=== PATIENT | female | born 1965 | race Caucasian/White ===

== ENCOUNTER → 2023-11-11 10:29 | Outpatient (REF) | payer BC, SELFPAY | LOC: RCS 10:29 | PROVIDERS: ATTENDING PHYSICIAN Internal Medicine Cardiovascular Disease; FAMILY PHYSICIAN Family Medicine | DX: R94.31 Abnormal electrocardiogram [ECG] [EKG] (principal) | CPT/HCPCS: 93306 ==

== ENCOUNTER → 2023-11-24 10:12 | Outpatient (REF) | payer BC, SELFPAY | LOC: RCS 10:12 | PROVIDERS: ATTENDING PHYSICIAN Internal Medicine Cardiovascular Disease; FAMILY PHYSICIAN Family Medicine | DX: R94.31 Abnormal electrocardiogram [ECG] [EKG] (principal) | CPT/HCPCS: 93017; 93350 ==

== ENCOUNTER 2024-01-26 18:04 | Inpatient (IN) | payer BC, SELFPAY ==
[2024-01-26] VITALS (8 sets, daily range): BP systolic 130–150; BP diastolic 80–95; BMI 23.9; BMI 23.0
--- NOTE | 2024-01-26 08:49 | ED.GENMED ---
History of Present Illness
General
Chief Complaint: Abdominal Pain
Source: patient
Time Seen by Provider: 01/26/24 08:37
Travel History
Have you had any contact with someone who has COVID-19?: No
Do you have any symptoms of coronavirus? Fever > 100 degrees, chills, cough, shortness of breath, sore throat, loss of taste or smell, muscle aches, or headache?: No
History of Present Illness
History of Present Illness:
This patient is a very pleasant 58-year-old female presents emergency department with complaints of upper abdominal pain that started about 30 minutes after eating last evening. She describes the pain as constant, but waxes and wanes in intensity
without specific provoking or relieving factors. She notes that she is under tremendous amount of stress recently. Patient has a history of IBS, and states that she suffers with nausea and diarrhea typically after eating, but it goes away usually
within a few hours. This has not gone away. At 4:30 AM today she developed vomiting, without blood or coffee grounds, and eventually called medics due to continued symptoms. She was given Zofran on transport and is no longer nauseous but the pain
continues. She denies associated chest pain, back pain, dyspnea, fever, chills, urinary symptoms, headache, or other complaints.
Past History
Past History
ED Past Medical History: Asthma, GERD and HTN
ED Past Surgical History: Other (Perforated rectum at 7 months old, has stool incont. since.)
Social History
Tobacco: Non-smoker
Alcohol: None
Drug: None
Personal: Single
Living: with family
Employment: Employed
Family History
Family History: Diabetes, Cancer and Other (HTN)
Phy Exam
Physical Exam
Physical Exam:
GENERAL: Alert , appears slightly uncomfortable
EYE: pupils equal and reactive
NECK: Supple, no significant adenopathy.
ENT: o/p clr, mm dry
CARDIAC: Regular rate and rhythm .
LUNGS: Clear breath sounds bilaterally, no acute respiratory distress, no wheezes/rales/rhonchi
ABDOMEN: Soft, mild to moderate upper abdominal tenderness, no r/g, no cvat, slight distention
NEUROLOGICAL: Alert and oriented, no focal neuro deficits
SKIN: Warm and dry, skin intact.
MUSCULOSKELETAL: No edema, well perfused.
PSYCH: Normal and appropriate interaction.
Course
Orders/Labs/Results
Orders:
Orders
01/26/24 08:41
Complete Blood Count/With Diff Urgent
Comprehensive Metabolic Panel Urgent
Lipase Urgent
01/26/24 08:48
Electrocardiogram (*1) Stat
Reason for Study: Abdominal Pain
Cardiac Monitoring- Treatment ONCE
EKG- Treatment ONCE
0.9% Sodium Chloride 1000 ml [Nss] 1,000 ml IV BOLUS
Morphine Sulfate 4 mg IV NOW STA
CR Obstruct Series W/pa Chest Urgent
Comment:
Reason For Exam: distention, pain, n/v
01/26/24 08:49
US Abdomen Complete/Upper Urgent
Comment:
Reason For Exam: upper pain, n/v
01/26/24 11:33
Iohexol [Omnipaque] See Protocol PO NOW STA
01/26/24 11:34
CT Abd/pel W Iv And Oral Contr Urgent
Comment:
Reason For Exam: abd pain, hx surgery
01/26/24 11:47
Urinalysis Reflex To Culture Urgent
Date Specimen was Collected: 01/26/24
Time Specimen was Collected: 11:46
Abnormal Lab Results
01/26/24
08:41
MPV 10.6 H fL
(7.4-10.4)
Absolute Neuts (auto) 8.2 H 10^3/uL
(1.4-6.5)
Absolute Lymphs (auto) 0.9 L 10^3/uL
(1.2-3.4)
Neutrophils % 86.9 H %
(42.2-75.2)
Lymphocytes % 9.0 L %
(20.5-51.1)
Glucose 141 H mg/dl
(70-99)
01/26/24 08:41
01/26/24 08:41
Vital Signs
Initial and Last Documented VS:
Initial Vital Signs
Temp Pulse Resp BP Pulse Ox
97.8 F 74 20 150/87 100
01/26/24 08:26 01/26/24 08:26 01/26/24 08:26 01/26/24 08:26 01/26/24 08:26
Last Documented Vital Signs
Temp Pulse Resp BP Pulse Ox
97.8 F 90 13 141/90 98
01/26/24 08:26 01/26/24 14:30 01/26/24 14:30 01/26/24 14:00 01/26/24 14:30
Update Note
Update Note:
Patient presents to the Emergency Department with ___abdominal pain nausea and vomiting
Number and Complexity of Problems Addressed at the Encounter
� Chronic conditions affecting care:
� Acute Exacerbation and/or Progression of Chronic Illness:
� Differential Diagnosis includes: But not limited to bowel obstruction, acute cholecystitis, cholelithiasis, pancreatitis, etc. etc.
Amount and/or Complexity of Data to be Reviewed and Analyzed
� I performed an independent evaluation of and my interpretation is:
EKG: Read by me, normal sinus rhythm, no acute ischemia, QT noted at 484
CT:High-grade partial small bowel obstruction in the mid abdomen . Just proximal to the transition is a stool-filled loop of small bowel in the midabdomen. Most likely related to previous postsurgical adhesions. No free air. No
fluid collection.
Mild hydronephrosis of the right kidney, etiology unclear. May be due to congenital anomaly or rotation. No distal ureteral calcification.
Xrays:
Laboratory Studies: Generally unremarkable
Other:
� Review of other/old records reveals: Patient had a normal exercise stress and echo with an EF of 60% in 2019
� Clinical information was obtained by an independent historian:
� Prescriptions/Medications Considered but not given:
� Further testing considered but not performed:
Risk of Complications and/or Morbidity or Mortality of Patient Management
� Social determinants of health affecting care:
� Discussion with other providers (PCP, Hospitalists, Consultants, etc):
� Escalation of care including admission/observation vs risk of discharge considered: 4:14 PM 58-year-old female with partial SBO most likely related to adhesions, not actively vomiting, hemodynamically stable. Case discussed
with hospitalist for admission, maintenance rate of IV fluids started, patient stable
ED Attending Note
-
Portions of this chart may have been created with voice recognition software.� Occasional wrong word or��sound alike� substitutions may have occurred due to the inherent limitations of voice recognition software.
Discharge Plan
Departure
Patient Disposition: Admit
Date of Disposition: 01/26/24
Time of Disposition: 16:14
Admit to: Med/Surg
Presentation/result/management discussed w/ accepting MD/DO: Hospitalist
Condition: Fair
Discharge Problem:
SBO (small bowel obstruction)
Prescriptions:
No Action
ergocalciferol (vitamin D2) [Vitamin D] 50,000 UNIT capsule
50,000 unit PO DAILY
albuterol sulfate [ProAir HFA] 8.5 GM HFA aerosol inhaler
2 puff IH DAILYPRN PRN (Reason: sob)
fluoxetine [Prozac] 40 MG capsule
40 mg PO HS
amlodipine 2.5 MG tablet
2.5 mg PO DAILY
fluticasone propion-salmeterol [Advair Diskus] 1 EACH blister with device
1 ea IH BID
loperamide 2 MG capsule
2 mg PO Q4HPRN PRN (Reason: diarrhea)
ondansetron HCl 4 MG tablet
4 mg PO Q8HPRN PRN (Reason: nausea)
naproxen 250 MG tablet
250 mg PO PRN PRN (Reason: pain)
acetaminophen [Tylenol Extra Strength] 500 MG tablet
1,000 mg PO Q4HPRN PRN (Reason: pain)
fluticasone propionate 1 SPRAY spray,suspension
1 spray intranasal DAILY
tcnebsf-gsowspfbbhhba-oaxstwoy [Excedrin Migraine] 1 TABLET tablet
1 tab PO PRN PRN (Reason: migraine)
albuterol sulfate 90 mcg/actuation aerosol powdr breath activated
2 inh inhalation Q6H PRN (Reason: shortness of breath or wheezing) Qty: 1 0RF
benzonatate 200 mg capsule
200 mg PO TID PRN (Reason: Cough) Qty: 21 0RF
Referrals:
Eileen Yusuf DO [Family Provider] -
Interventions
Interventions:
*Risk Screen - Suicide Last Done: 01/26/24 08:29
*General Assessment Last Done: 01/26/24 08:29
*Neglect/Abuse Screening Last Done: 01/26/24 08:29
*ED COVID-19 Vaccine History Last Done: 01/26/24 08:31
EX-Lufiud-Fhdnmhkhgs Assessment Last Done: 01/26/24 08:35
Discharge Date and Time
Print Language: BELGIAN
[2024-01-26 08:58] LABS: % Basophils 0.3 % (0-2); % Eosinophils 0.2 % (0-6); % Immature Granulocytes 0.2 % (0-0.5); % Monocytes 3.4 % (1.7-9.3); % Neutrophils 86.9 % (42.2-75.2); Absolute Lymphocytes 0.9 10^3/uL (1.2-3.4); Absolute Monocytes 0.3 10^3/uL (0.1-0.6); Absolute Neutrophils 8.2 10^3/uL (1.4-6.5); Hematocrit 38.5 % (37.0-47.0); Hemoglobin 13.2 g/dL (12.0-16.0); Mean Corp Hgb Conc. 34.3 g/dL (33.0-37.0); Mean Corpuscular Hgb 29.1 pg (27.0-31.0); Mean Platelet Volume 10.6 fL (7.4-10.4); Nucleated Red Blood Cells % 0 %; Platelet Count 224 10^3/uL (130-400); Red Blood Cell Count 4.53 10^6/uL (4.20-5.40); Red Cell Dist. Width 13.5 % (11.5-14.5); White Blood Cell Count 9.4 10^3/uL (4.8-10.8)
[2024-01-26] MEDS: MORPHINE SULFATE 4 MG IV (08:59)
[2024-01-26] MEDS: NSS 1000 IV ×2 (08:59→19:36)
[2024-01-26 09:02] LABS: ALT (SGPT) 15 U/L (0-35); AST (SGOT) 24 U/L (14-36); Albumin 4.6 g/dl (3.5-5.0); Alkaline Phosphatase 79 U/L (38-126); Blood Urea Nitrogen 10 mg/dl (7-17); Calcium 9.5 mg/dl (8.4-10.2); Carbon Dioxide 27 mmol/L (22-30); Chloride 105 mmol/L (98-107); Estimated Creatinine Clearance 61 ml/min; Glucose 141 mg/dl (70-99); Lipase 98 U/L (23-300); Potassium 3.8 mmol/L (3.5-5.1); Sodium 139 mmol/L (135-145); Total Bilirubin 0.7 mg/dl (0.2-1.3); Total Protein 7.6 g/dl (6.3-8.2); eGFR > 60.00
[2024-01-26] MEDS: OMNIPAQUE 50 ML PO (11:54)
[2024-01-26 12:04] LABS: Urine Albumin Negative (Neg - Trace); Urine Bilirubin Negative (Negative); Urine Character Clear (Clear); Urine Color Yellow; Urine Glucose Negative (Negative); Urine Ketone Negative (Negative); Urine Leukocyte Negative (Negative); Urine Nitrite Negative (Negative); Urine Occult Blood Negative (Negative); Urine Specific Gravity 1.015 (<1.030); Urine Urobilinogen Negative (Neg - 1+); Urine pH 6.5 (5.0-9.0)
--- NOTE | 2024-01-26 16:28 | HPS.HSE ---
Addendum entered and electronically signed by JEFFRY Richardson 01/26/24 17:13:
Surgery will see in a.m. Dr. Rivas aware
-Flatplate abdomen in a.m. reassess SBO
-If vomiting persistent may place NG tube per surgery
Original Note:
Family Physician
-
Family Physician: Eileen Yusuf
Chief Complaint
-
Abdominal pain, nausea, diarrhea
History of Present Illness
58-year-old female complaining of upper abdominal pain 30 minutes after eating last night. She reports the pain has wax and wane but has not gone away. She said she has history of IBS and frequently has nausea and diarrhea after eating but it
typically goes away within a few hours she also states she has been under a lot of stress recently. In the ER she was noted to have a partial small bowel obstruction likely secondary to prior adhesions.
She has history of chronic stool incontinence due to a absent anus at 7 months although surgically repaired was coming out prior vaginal area before repair. Her other past medical history includes
HTN, asthma, chronic bronchitis, GERD, IBS, gallbladder polyps, seasonal allergies, anemia, anxiety, depression, cataracts, headaches/migraine, cyst on kidney.
Medical History
Past Medical History
Past Medical History: Reports Other
Additional Past Medical History:
HTN
asthma
chronic bronchitis
Chronic stool incontinence
GERD
IBS
anemia
gallbladder polyps
seasonal allergies
anxiety
depression
headaches/migraine
cataracts
cyst on kidney
Past Surgical History: Reports Other
Additional Past Surgical History:
[place] teeth extraction
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
Appendectomy
Left carpal tunnel repair
Right CTR repair 1990s
Social History
Tobacco: Non-smoker
Alcohol: Occasional
Drug: None
Personal: Single
Living: With Family (Lives with her parents)
Employment: Employed (Flat [employer] at [employer])
Family History
Family History: Other (Mother history dementia, breast CA, HTN, CHF, DM 2, father history CHF, DM 2, 1 brother unknown history)
Allergies / Home Medications
Allergies reflects when Allergies were last updated in [facility]
Home Medications with original date entered in [facility]
Allergy/Medication List:
Allergies
Allergy/AdvReac Type Severity Reaction Status Date / Time
ibuprofen Allergy stomach Verified 01/26/24 08:26
pain
aspirin AdvReac diarrhea Verified 01/26/24 08:26
and
stomach
pain
enviromental Allergy sneezing, Uncoded 01/26/24 08:26
watery eyes
Home Medications
albuterol sulfate 90 mcg/actuation aerosol inhaler (ProAir HFA) 2 puff IH R Q4HPRN PRN sob 11/23/10
amlodipine 2.5 mg tablet 2.5 mg PO DAILY 11/20/21
acetaminophen 500 mg tablet (Tylenol Extra Strength) 1,000 mg PO DAILY 11/23/21
fluoxetine 20 mg capsule (Prozac) 20 mg PO HS 01/26/24
Review of Systems
-
History Source: Patient
A 12 point ROS was completed and negative except as noted: Yes
Constitutional: Denies Fever or Chills
EENT: Denies Sore Throat or Runny Nose
Respiratory: Denies Cough or Trouble Breathing
Cardiac: Denies Chest Pain or Syncope
Abdomen/GI: Reports Abdominal Pain (Midepigastric), Nausea, Vomiting and Diarrhea
: Denies Dysuria, Frequency, Flank Pain, Incontinence, Difficulty Voiding or Urgency
Musculoskeletal: Denies Joint Pain or Edema
Skin: Denies Itching or Rash
Neurological: Denies Dizzy, Headache or Weakness
Endocrine: Reports No Symptoms
Hematologic/Lymphatic: Reports No Symptoms
Psych: Reports Calm
Physical Exam
Vital Signs
Vital Signs
Temp Pulse Resp BP Pulse Ox
97.8 F 90 13 141/90 98
01/26/24 08:26 01/26/24 14:30 01/26/24 14:30 01/26/24 14:00 01/26/24 14:30
Physical Exam
General: Conversant and Pain; No Fever or Chills
HEENT: NormoCephalic, Anicteric, Moist mucous membranes, PERRLA, [place] Conjunctivae and No Ptosis
Respiratory: Clear; No Wheezes, Rales or Rhonchi
Cardiac: S1/S2 and Regular Rhythm; No Murmur, Rub, Gallop or Peripheral Edema
Breast: Deferred by me
GI: Soft, Non Distended, Normal Bowel Sounds, Tender (Midepigastric) and No Hepatosplenomegaly
Rectal: Deferred by Provider
Genito-urinary: Deferred by me
Musculoskeletal: No Clubbing, No Cyanosis and No Edema
Skin: Warm and Dry; No Rash
Neuro: AO x 3, No Motor Deficits, Nonfocal/grossly intact, Cranial Nerves Intact and No Sensory Deficits; No Slurred Speech, Facial Droop or Tremors
Psych: Calm
Laboratory Results
-
01/26/24 08:41
01/26/24 08:41
Laboratory Results
Total Bilirubin 0.7 mg/dl (0.2-1.3) 01/26/24 08:41
AST 24 U/L (14-36) 01/26/24 08:41
ALT 15 U/L (0-35) 01/26/24 08:41
Alkaline Phosphatase 79 U/L (38-126) 01/26/24 08:41
Lipase 98 U/L (23-300) 01/26/24 08:41
Data Reviewed
-
CT Scan: Report Reviewed by me
Lab Data: Labs Reviewed by me
Impression/Plan
-
Impression/plan:
Admit to MedSurg
#Partial small bowel obstruction likely secondary to adhesions
#History of chronic stool incontinence/congenital anus repair at age 6 months
141/90, HR 90, 97.8
-Consult Surgery
-N.p.o.
-IV NSS
-IV Protonix 40 mg now and daily
-IV Phenergan as needed nausea
-IV morphine for pain
-Follow CBC, BMP
CT abdomen pelvis with IV and oral contrast:
1. High-grade partial small bowel structure in the mid abdomen. Just proximal to the transition is a stool filled loop of small bowel in the mid abdomen most likely to previous postsurgical adhesions. No free air or fluid
collection
2. Mild hydronephrosis of the right kidney unclear etiology may be congenital.
Abdominal ultrasound: 2 small gallbladder polyps. Gallbladder otherwise unremarkable
#Prolonged QTc
-Avoid prolonged QTc agents
-IV Phenergan as needed nausea
EKG: Sinus rhythm 80 bpm with short OH, prolonged QTc 484 MS
-Follow EKG QTc
#HTN�benign
141/90
-Hold p.o. amlodipine 2.5 mg daily
#Asthma-no acute exacerbation
# Chronic bronchitis
-Continue albuterol inhaler as needed
#GERD
#IBS hx
-Patient follows with Dr. Liz GI as outpatient
#Anemia hx
Hgb 13.2
#Anxiety/Depression
-Hold Prozac 20 mg at bedtime
#Headaches/migraine
-No current meds
Other PMH:
Gallbladder polyps
Seasonal allergies
cataracts
Cyst on Kidney right
DVT prophylaxis
Subcu Lovenox
Full code
[2024-01-26] MEDS: NSS 500 IV (16:56)
--- NOTE | 2024-01-26 17:11 | W.PN.UPDATE ---
Update Note
Progress Note Update
HPI: 58-year-old female PMH HTN, asthma, chronic bronchitis, GERD, IBS, gallbladder polyps, seasonal allergies, anemia, anxiety/depression, cataracts, headaches/migraine, cyst on kidney; p/w abdominal pain after eating last night. She also c/o
nausea. 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
In the ER, her CT AP noted partial small bowel obstruction likely secondary to prior adhesions.
A/P:
# Abd pain due to partial small bowel obstruction likely secondary to adhesions
Consult GS
Cont NPO with IVF
IV Protonix 40 mg daily
IV Phenergan as needed nausea
IV morphine for pain
# Prolonged QTc
Avoid prolonged QTc agents
IV Phenergan as needed nausea
Follow QTc
# HTN
Hold p.o. amlodipine 2.5 mg daily
can use IV hydralazine as needed for SBP > 160
# Asthma-no acute exacerbation
# Chronic bronchitis
Continue albuterol inhaler as needed
# GERD
# IBS hx
Patient follows with GI Dr. Liz as outpatient
# Anxiety/Depression
Hold Prozac 20 mg at bedtime
Other PMH:
# Gallbladder polyps
# cataracts
# Cyst on right kidney
DVT prophylaxis: Subcu Lovenox
Full code
[2024-01-26] MEDS: MORPHINE SULFATE 2 MG IV (17:48)
[2024-01-26] MEDS: PROTONIX IV 40 MG IV (17:49)
[2024-01-26] MEDS: NSS (PRESERVATIVE FREE) 10 ML IV (17:49)
[2024-01-26] MEDS: NSS IV (22:03)
[2024-01-27] MEDS: NSS IV ×2 (01:29→06:01)
[2024-01-27] MEDS: NSS 1000 IV (04:06)
[2024-01-27 07:30] VITALS: BP 150/74
[2024-01-27 07:38] LABS: % Basophils 0.6 % (0-2); % Immature Granulocytes 0.2 % (0-0.5); % Lymphocytes 25.9 % (20.5-51.1); % Monocytes 7.4 % (1.7-9.3); % Neutrophils 63.9 % (42.2-75.2); Absolute Eosinophils 0.1 10^3/uL (0-0.7); Absolute Lymphocytes 1.3 10^3/uL (1.2-3.4); Absolute Monocytes 0.4 10^3/uL (0.1-0.6); Absolute Neutrophils 3.2 10^3/uL (1.4-6.5); Hematocrit 34.9 % (37.0-47.0); Hemoglobin 11.5 g/dL (12.0-16.0); Mean Corpuscular Hgb 28.8 pg (27.0-31.0); Mean Corpuscular Volume 87.3 fL (81.0-99.0); Mean Platelet Volume 10.8 fL (7.4-10.4); Nucleated Red Blood Cells % 0 %; Platelet Count 159 10^3/uL (130-400); Red Cell Dist. Width 13.7 % (11.5-14.5)
[2024-01-27] MEDS: NSS (PRESERVATIVE FREE) 10 ML IV (07:42)
[2024-01-27] MEDS: PROTONIX IV 40 MG IV (07:42)
[2024-01-27 08:06] LABS: ALT (SGPT) 10 U/L (0-35); AST (SGOT) 21 U/L (14-36); Albumin 3.2 g/dl (3.5-5.0); Alkaline Phosphatase 64 U/L (38-126); Blood Urea Nitrogen 7 mg/dl (7-17); Calcium 8.5 mg/dl (8.4-10.2); Carbon Dioxide 25 mmol/L (22-30); Chloride 109 mmol/L (98-107); Estimated Creatinine Clearance 68 ml/min; Glucose 88 mg/dl (70-99); Potassium 4.1 mmol/L (3.5-5.1); Sodium 136 mmol/L (135-145); Total Bilirubin 1.3 mg/dl (0.2-1.3); Total Protein 5.6 g/dl (6.3-8.2); eGFR > 60.00
--- NOTE | 2024-01-27 08:47 | PTOTSP ---
orders received, chart reviewed. per RN, pt is up in room ad davi, no difficulties with self care or ambulation. no acute OT needs identified, will sign off.
[2024-01-27 08:51] LABS: Hepatitis C Antibody Negative (Negative)
--- NOTE | 2024-01-27 09:22 | W.PN.HOSP.TC ---
Today's Communication/Plan
-
see A/P
Assessment / Plan
Assessment / Plan
HPI: 58-year-old female PMH HTN, asthma, chronic bronchitis, GERD, IBS, gallbladder polyps, seasonal allergies, anemia, anxiety/depression, cataracts, headaches/migraine, cyst on kidney; p/w abdominal pain after eating last night. She also c/o
nausea. 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
In the ER, her CT AP noted partial small bowel obstruction likely secondary to prior adhesions.
A/P:
# Abd pain due to partial small bowel obstruction likely secondary to adhesions
GS on board, started clears
Observe off IVF
Cont IV Protonix 40 mg daily
With improved QTc, change IV Phenergan to IV Zofran
IV morphine for pain
Follow Abd XR follow through
# Mildly Prolonged QTc POA, QTc has improved
With improved QTc, change IV Phenergan to IV Zofran
# HTN
Hold p.o. amlodipine 2.5 mg daily
can use IV hydralazine as needed for SBP > 160
# Asthma-no acute exacerbation
# Chronic bronchitis
Continue albuterol inhaler as needed
# GERD
# IBS hx
Patient follows with GI Dr. Liz as outpatient
# Anxiety/Depression
Hold Prozac 20 mg at bedtime
Other PMH:
# Gallbladder polyps
# cataracts
# Cyst on right kidney
DVT prophylaxis: Subcu Lovenox
Full code
Anticipated Discharge: 24 - 48 hours
Subjective/Interval History
-
Date of Service: January 27, 2024
Objective Data
-
Labs:
Laboratory Results
01/27/24
07:22
WBC 5.0
Hgb 11.5 L
Hct 34.9 L
Plt Count 159 D
Sodium 136
Potassium 4.1
Chloride 109 H
Carbon Dioxide 25
BUN 7
Creatinine 0.6
Glucose 88
Calcium 8.5
Total Bilirubin 1.3
AST 21
ALT 10
Alkaline Phosphatase 64
Vital Signs:
Vital Signs
Temp Pulse Resp BP Pulse Ox
36.6 C 71 18 150/74 96
01/27/24 07:30 01/27/24 07:30 01/27/24 07:30 01/27/24 07:30 01/27/24 07:30
Review of Systems
-
Abdomen/GI: Reports Other ('abdominal pressure' per pt)
Physical Exam
-
General: Well Developed, Well Nourished, No Apparent Distress, Comfortable and Conversant; Negative Respiratory Distress
HEENT: Normocephalic, Atraumatic, Nose Appears Normal and Ears Appear Normal; Negative Oxygen
Respiratory: Clear to Auscultation and Non Labored Respirations; Negative Accessory Resp Muscle Use
Cardiac: Regular Rhythm and S1/S2
GI: Soft, Nondistended and Normal Bowel Sounds
Skin: Warm and Dry
Neuro: Awake, Alert, Oriented and AO x 3
Psych: Calm and Intact Judgement/Insight
Data Reviewed
-
CT Scan: Report Reviewed by me
Labs: Labs Reviewed by me
--- NOTE | 2024-01-27 10:25 | CON.GS ---
Addendum entered and electronically signed by Calin Miranda MD 01/27/24 14:53:
I saw and examined the patient independently.
The Solar System Installer's note was reviewed and I agree with the note, assessment and plan except where noted below.
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
CT imaging likely secondary to adhesions, her first ever episode. Repeat imaging today however demonstrates contrast well into the colon, indicating this obstruction might be resolving. She is still slightly distended but is passing flatus.
Okay for clears and advance diet as tolerated.
No acute general surgery intervention warranted.
Will continue to follow
Original Note:
Medical History
-
Chief Complaint: vomiting
History of Present Illness:
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 She
denies active pain or nausea currently. She has passed some flatus overnight but no BM as of yet. Abdominal distention present but mild.
Past Medical History
Past Medical History: Asthma, GERD, HTN and Other (IBS, gallbladder polyps, hiatal hernia)
Past Surgical History: Orthopedic (BL carpal tunnel repairs) and Other (Surgery to correct anal atresia as a 6month old with concurrent appendectomy)
Social History
Tobacco: Non-Smoker
Alcohol: Occasional
Living: With Family
Family History
Family History: Cancer (breast-mother)
Allergies / Home Medications
Allergy/AdvReac Type Severity Reaction Status Date / Time
ibuprofen Allergy stomach Verified 01/26/24 08:26
pain
aspirin AdvReac diarrhea Verified 01/26/24 08:26
and
stomach
pain
enviromental Allergy sneezing, Uncoded 01/26/24 08:26
watery eyes
�Medication �Instructions �Recorded �Confirmed �Type
albuterol sulfate 90 mcg/actuation 2 puff IH R Q4HPRN PRN shortness 11/23/10 01/26/24 History
aerosol inhaler (ProAir HFA) of breath
amlodipine 2.5 mg tablet 2.5 mg PO DAILY Blood Pressure 11/20/21 01/26/24 History
acetaminophen 500 mg tablet 1,000 mg PO DAILY Pain 11/23/21 01/26/24 History
(Tylenol Extra Strength)
fluoxetine 20 mg capsule (Prozac) 20 mg PO HS depression/anxiety 01/26/24 01/26/24 History
Review of Systems
-
A 10 point review of systems was completed, and was negative except as per HPI.
Physical Exam
Vital Signs
Temp Pulse Resp BP Pulse Ox
97.9 F 71 18 150/74 96
01/27/24 07:30 01/27/24 07:30 01/27/24 07:30 01/27/24 07:30 01/27/24 08:00
01/26/24 01/27/24 01/28/24
06:59 06:59 06:59
Actual Weight 51.71 kg
Body Mass Index (BMI) 23.0
Lab Results
01/27/24 07:22
01/27/24 07:22
WBC 5.0 10^3/uL (4.8-10.8) 01/27/24 07:22
Hgb 11.5 g/dL (12.0-16.0) L 01/27/24 07:22
Hct 34.9 % (37.0-47.0) L 01/27/24 07:22
Plt Count 159 10^3/uL (130-400) D 01/27/24 07:22
Abs Immat Gran (auto) 0.0 10^3/uL (0-0.05) 05/03/24 07:22
Neutrophils % 63.9 % (42.2-75.2) 01/27/24 07:22
Physical Exam
General: Well Developed, Well Nourished and No Apparent Distress
HEENT: Moist Mucous Membranes
Respiratory: Non Labored Respirations
GI: Soft, Non Tender and Distended (mild)
Skin: Warm and Dry
Neuro: Awake, Alert and AO x 3
Psych: Calm
Data Reviewed
-
Radiology: Image Personally Visualized and interpreted, Report Reviewed by me, Discussed with Physician and Discussed with Patient
CT Scan: Image Personally Visualized and interpreted, Report Reviewed by me, Discussed with Physician and Discussed with Patient
Labs: Labs Reviewed by me and Discussed with Physician
Assessment / Plan
-
58 yo female with a h/o anal atresia with corrective surgery with concurrent appendectomy as a 6 month old child who presents with n/v/abdominal pain starting yesterday evening. Symptoms resolving with passage of flatus this am. CT imaging reviewed
with concern for pSBO likley secondary to adhesions. She notes no prior obstructions in the past. Follow up imaging this morning with contrast within the colon, await final read. AFVSS
--No plan for emergent surgery at this time, follow with supportive measures
--Start clear liquids and follow for tolerance
--Medical management as per primary team
--- NOTE | 2024-01-27 10:44 | CM ---
I met with Yasmin Gallardo this AM to complete assessment. 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 Per Yasmin her parents 'do their own thing'. She does feel stressed by her parents, moreso her mother who
has mild dementia, however Yasmin Gallardo does not care to live elsewhere. She states she has always lived with them and not planning to leave. Yasmin's brother will likely pick her up at discharge. No needs identified at this time.
[2024-01-27 15:26] VITALS: BP 139/86
[2024-01-27 23:23] VITALS: BP 138/86
[2024-01-28 05:50] LABS: % Basophils 0.9 % (0-2); % Eosinophils 3.9 % (0-6); % Immature Granulocytes 0.2 % (0-0.5); % Lymphocytes 31.4 % (20.5-51.1); % Neutrophils 55.6 % (42.2-75.2); Absolute Eosinophils 0.2 10^3/uL (0-0.7); Absolute Lymphocytes 1.4 10^3/uL (1.2-3.4); Absolute Monocytes 0.4 10^3/uL (0.1-0.6); Absolute Neutrophils 2.4 10^3/uL (1.4-6.5); Hematocrit 36.3 % (37.0-47.0); Hemoglobin 12.1 g/dL (12.0-16.0); Mean Corp Hgb Conc. 33.3 g/dL (33.0-37.0); Mean Corpuscular Volume 87.1 fL (81.0-99.0); Mean Platelet Volume 10.6 fL (7.4-10.4); Nucleated Red Blood Cells % 0 %; Platelet Count 156 10^3/uL (130-400); Red Blood Cell Count 4.17 10^6/uL (4.20-5.40); Red Cell Dist. Width 13.1 % (11.5-14.5); White Blood Cell Count 4.4 10^3/uL (4.8-10.8)
[2024-01-28 06:09] LABS: ALT (SGPT) 10 U/L (0-35); AST (SGOT) 27 U/L (14-36); Albumin 3.6 g/dl (3.5-5.0); Alkaline Phosphatase 66 U/L (38-126); Blood Urea Nitrogen 7 mg/dl (7-17); Calcium 9.1 mg/dl (8.4-10.2); Carbon Dioxide 29 mmol/L (22-30); Chloride 105 mmol/L (98-107); Estimated Creatinine Clearance 68 ml/min; Glucose 94 mg/dl (70-99); Potassium 3.8 mmol/L (3.5-5.1); Sodium 138 mmol/L (135-145); Total Bilirubin 1.5 mg/dl (0.2-1.3); Total Protein 6.3 g/dl (6.3-8.2); eGFR > 60.00
[2024-01-28 07:35] VITALS: BP 144/89
[2024-01-28] MEDS: PROTONIX IV 40 MG IV (07:46)
[2024-01-28] MEDS: NSS (PRESERVATIVE FREE) 10 ML IV (07:46)
--- NOTE | 2024-01-28 09:48 | W.PN.HOSP.TC ---
Today's Communication/Plan
-
see A/P
Assessment / Plan
Assessment / Plan
HPI: 58-year-old female PMH HTN, asthma, chronic bronchitis, GERD, IBS, gallbladder polyps, seasonal allergies, anemia, anxiety/depression, cataracts, headaches/migraine, cyst on kidney; p/w abdominal pain after eating last night. She also c/o
nausea. 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
In the ER, her CT AP noted partial small bowel obstruction likely secondary to prior adhesions.
A/P:
# Abd pain due to partial small bowel obstruction likely secondary to adhesions
GS on board, started clears and would be advanced to full liquid today, ADAT per surgery
Off IVF
Cont IV Protonix 40 mg daily
With improved QTc, changed IV Phenergan to IV Zofran
IV morphine for pain
Abd XR follow through showed contrast in the colon
# Mildly Prolonged QTc POA, QTc has improved
With improved QTc, changed IV Phenergan to IV Zofran
# HTN
Hold p.o. amlodipine 2.5 mg daily
can use IV hydralazine as needed for SBP > 160
# Asthma-no acute exacerbation
# Chronic bronchitis
Continue albuterol inhaler as needed
# GERD
# IBS hx
Patient follows with GI Dr. Liz as outpatient
# Anxiety/Depression
Hold Prozac 20 mg at bedtime
Other PMH:
# Gallbladder polyps
# cataracts
# Cyst on right kidney
DVT prophylaxis: Subcu Lovenox
Full code
Anticipated Discharge: 24 - 48 hours
Subjective/Interval History
-
Date of Service: January 28, 2024
Objective Data
-
Labs:
Laboratory Results
01/28/24
04:55
WBC 4.4 L
Hgb 12.1
Hct 36.3 L
Plt Count 156
Sodium 138
Potassium 3.8
Chloride 105
Carbon Dioxide 29
BUN 7
Creatinine 0.5 L
Glucose 94
Calcium 9.1
Total Bilirubin 1.5 H
AST 27
ALT 10
Alkaline Phosphatase 66
Vital Signs:
Vital Signs
Temp Pulse Resp BP Pulse Ox
36.7 C 83 18 144/89 98
01/28/24 07:35 01/28/24 07:35 01/28/24 07:35 01/28/24 07:35 01/28/24 07:53
I&O
01/27/24 01/28/24 01/29/24
06:59 06:59 06:59
Intake Total 1520 / 1520
Balance 1520 / 1520
Review of Systems
-
All other systems: Reviewed and negative
Abdomen/GI: Reports Abdominal Pain (mild)
Physical Exam
-
General: Well Developed, Well Nourished, No Apparent Distress, Comfortable and Conversant; Negative Respiratory Distress
HEENT: Normocephalic, Atraumatic, Nose Appears Normal and Ears Appear Normal; Negative Oxygen
Respiratory: Clear to Auscultation and Non Labored Respirations; Negative Accessory Resp Muscle Use
Cardiac: Regular Rhythm and S1/S2
GI: Soft, Nondistended and Normal Bowel Sounds
Skin: Warm and Dry
Neuro: Awake, Alert, Oriented and AO x 3
Psych: Calm and Intact Judgement/Insight
Data Reviewed
-
Diagnostic Radiology: Report Reviewed by me
CT Scan: Report Reviewed by me
Labs: Labs Reviewed by me
--- NOTE | 2024-01-28 12:12 | W.PN.GS2 ---
Addendum entered and electronically signed by Dagoberto Valentino MD 01/28/24 14:36:
I saw and examined the patient.
The RED MUD THICKENER OPERATOR's note was reviewed and I agree with the note.
Comment:
Seen in a.m. with RED MUD THICKENER OPERATOR.
Tolerating clears. Denies nausea or vomiting. Having some flatus and stool 'smears '.
Vitals reasonable. Labs okay as well.
Abdomen mildly distended and nontender.
Diet advance to fulls.
Original Note:
Today's Communication / Plan
-
Full liquid diet
Assessment / Plan
-
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
secondary to adhesions, her first ever episode. Repeat imaging 01/26 demonstrates contrast well into the colon, indicating this obstruction might be resolving.
She is still slightly distended and tender but is passing flatus.
AFVSS
Labs stable
Okay for full liquids
No acute general surgery intervention warranted.
Will continue to follow
Subjective Data
-
Date of Service: January 28, 2024
Patient seen and examined at bedside with Dr. Valentino. Denies n/v. Tolerating clears. Some distention remains. Mild tenderness across the mid abdomen. Passing flatus and 'smears' of stool but no true BM as of yet.
Objective Data
-
Intake and Output
01/27/24 01/28/24 01/29/24
06:59 06:59 06:59
Intake Total 1520 / 1520
Balance 1520 / 1520
Intake:
Oral fluids 1200 / 1200
IV fluids (Total) 320 / 320
Other:
Number of approximated MODERATE 2
amounts of urine
Number of approximated LARGE 1 3
amounts of urine
Vital Signs
Temp Pulse Resp BP Pulse Ox
98.1 F 83 18 144/89 98
01/28/24 07:35 01/28/24 07:35 01/28/24 07:35 01/28/24 07:35 01/28/24 07:53
Lab Results
01/28/24 04:55
01/28/24 04:55
Calcium 9.1 mg/dl (8.4-10.2) 01/28/24 04:55
Total Bilirubin 1.5 mg/dl (0.2-1.3) H 01/28/24 04:55
AST 27 U/L (14-36) 01/28/24 04:55
ALT 10 U/L (0-35) 01/28/24 04:55
Alkaline Phosphatase 66 U/L (38-126) 01/28/24 04:55
Total Protein 6.3 g/dl (6.3-8.2) 01/28/24 04:55
Albumin 3.6 g/dl (3.5-5.0) 01/28/24 04:55
Physical Exam
-
NAD
ABD softly distended, mild tenderness to the mid abdomen to the left of midline
[2024-01-28 15:16] VITALS: BP 141/86
[2024-01-28 23:35] VITALS: BP 125/86
[2024-01-29 06:59] LABS: % Basophils 0.7 % (0-2); % Immature Granulocytes 0.2 % (0-0.5); % Lymphocytes 35.1 % (20.5-51.1); Absolute Eosinophils 0.1 10^3/uL (0-0.7); Absolute Lymphocytes 1.5 10^3/uL (1.2-3.4); Absolute Monocytes 0.4 10^3/uL (0.1-0.6); Absolute Neutrophils 2.2 10^3/uL (1.4-6.5); Hemoglobin 12.5 g/dL (12.0-16.0); Mean Corp Hgb Conc. 34.7 g/dL (33.0-37.0); Mean Corpuscular Hgb 29.2 pg (27.0-31.0); Mean Corpuscular Volume 84.1 fL (81.0-99.0); Mean Platelet Volume 10.8 fL (7.4-10.4); Nucleated Red Blood Cells % 0 %; Platelet Count 164 10^3/uL (130-400); Red Blood Cell Count 4.28 10^6/uL (4.20-5.40); Red Cell Dist. Width 13.2 % (11.5-14.5); White Blood Cell Count 4.4 10^3/uL (4.8-10.8)
[2024-01-29 07:30] VITALS: BP 167/91
[2024-01-29 07:50] LABS: ALT (SGPT) 11 U/L (0-35); AST (SGOT) 26 U/L (14-36); Albumin 3.7 g/dl (3.5-5.0); Alkaline Phosphatase 62 U/L (38-126); Blood Urea Nitrogen 7 mg/dl (7-17); Calcium 9.2 mg/dl (8.4-10.2); Carbon Dioxide 29 mmol/L (22-30); Chloride 102 mmol/L (98-107); Estimated Creatinine Clearance 68 ml/min; Glucose 93 mg/dl (70-99); Sodium 139 mmol/L (135-145); Total Bilirubin 0.9 mg/dl (0.2-1.3); Total Protein 6.3 g/dl (6.3-8.2); eGFR > 60.00
[2024-01-29] MEDS: PROTONIX IV 40 MG IV (08:13)
[2024-01-29] MEDS: NSS (PRESERVATIVE FREE) 10 ML IV (08:14)
--- NOTE | 2024-01-29 10:57 | W.PN.HOSP.TC ---
Addendum entered and electronically signed by Hallie Spring MD 01/29/24 14:39:
total DC time 35 min
Original Note:
Today's Communication/Plan
-
advance diet to low residue
if pt tolerates solid food, OK for DC home
Assessment / Plan
Assessment / Plan
HPI: 58-year-old female PMH HTN, asthma, chronic bronchitis, GERD, IBS, gallbladder polyps, seasonal allergies, anemia, anxiety/depression, cataracts, headaches/migraine, cyst on kidney; p/w abdominal pain after eating last night. She also c/o
nausea. 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
In the ER, her CT AP noted partial small bowel obstruction likely secondary to prior adhesions.
A/P:
# Abd pain due to partial small bowel obstruction likely secondary to adhesions
Abd XR follow through showed contrast in the colon
GS on board, advance diet to low residue
Pt can be discharged after tolerating solid food
# HTN
resume ENTRY LEVEL PARALEGAL amlodipine 2.5 mg daily
can use IV hydralazine as needed for SBP > 160
# Asthma-no acute exacerbation
# Chronic bronchitis
Continue albuterol inhaler as needed
# GERD
# IBS hx
Patient follows with GI Dr. Liz as outpatient
# Anxiety/Depression
Hold Prozac 20 mg at bedtime
Other PMH:
# Gallbladder polyps
# cataracts
# Cyst on right kidney
DVT prophylaxis: Subcu Lovenox
Full code
DW GS
Anticipated Discharge: Today
Subjective/Interval History
-
Date of Service: January 29, 2024
Objective Data
-
Labs:
Laboratory Results
01/29/24
05:45
WBC 4.4 L
Hgb 12.5
Hct 36.0 L
Plt Count 164
Sodium 139
Potassium 4.0
Chloride 102
Carbon Dioxide 29
BUN 7
Creatinine 0.6
Glucose 93
Calcium 9.2
Total Bilirubin 0.9
AST 26
ALT 11
Alkaline Phosphatase 62
Vital Signs:
Vital Signs
Temp Pulse Resp BP Pulse Ox
36.7 C 76 18 167/91 100
01/29/24 07:30 01/29/24 07:30 01/29/24 07:30 01/29/24 07:30 01/29/24 07:30
I&O
01/28/24 01/29/24 01/30/24
06:59 06:59 06:59
Intake Total 1520 / 1520 1140 / 1140
Balance 1520 / 1520 1140 / 1140
Review of Systems
-
All other systems: Reviewed and negative
Abdomen/GI: Denies Abdominal Pain
Physical Exam
-
General: Well Developed, Well Nourished, No Apparent Distress, Comfortable and Conversant; Negative Respiratory Distress
HEENT: Normocephalic, Atraumatic, Nose Appears Normal and Ears Appear Normal; Negative Oxygen
Respiratory: Clear to Auscultation and Non Labored Respirations; Negative Accessory Resp Muscle Use
Cardiac: Regular Rhythm and S1/S2
GI: Soft, Nontender, Nondistended and Normal Bowel Sounds
Skin: Warm and Dry
Neuro: Awake, Alert, Oriented and AO x 3
Psych: Calm and Intact Judgement/Insight
Data Reviewed
-
Diagnostic Radiology: Report Reviewed by me
CT Scan: Report Reviewed by me
Labs: Labs Reviewed by me
[2024-01-29 12:07] VITALS: BP 133/89
--- NOTE | 2024-01-29 12:21 | W.PN.GS2 ---
Addendum entered and electronically signed by Dagoberto Valentino MD 01/29/24 14:34:
I saw and examined the patient.
The ORDER BUILDER's note was reviewed and I agree with the note.
Comment:
Seen in am with PA.
Having flatus. Denies pain or nausea. Tolerated fulls.
Vitals and labs ok.
Abdomen mildly distended and nontender.
Diet advanced.
Original Note:
Today's Communication / Plan
-
Advance diet
Assessment / Plan
-
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
secondary to adhesions, her first ever episode. Repeat imaging 01/26 demonstrates contrast well into the colon, indicating this obstruction might be resolving.
She is still slightly distended and tender but is passing flatus.
AFVSS
Labs stable
Okay for low residue diet
No acute surgical intervention warranted.
Subjective Data
-
Date of Service: January 29, 2024
Patient seen and examined at bedside with Dr. Valentino. Minimal abdominal cramping to the left side. Denies n/v. Tolerating FLD. Hungry today. +flatus, no BM as of yet.
Objective Data
-
Intake and Output
01/28/24 01/29/24 01/30/24
06:59 06:59 06:59
Intake Total 1520 / 1520 1140 / 1140
Balance 1520 / 1520 1140 / 1140
Intake:
Oral fluids 1200 / 1200 1140 / 1140
IV fluids (Total) 320 / 320
Other:
Number of approximated MODERATE 2 2
amounts of urine
Number of approximated LARGE 3
amounts of urine
Vital Signs
Temp Pulse Resp BP Pulse Ox
97.9 F 93 18 133/89 98
01/29/24 12:07 01/29/24 12:07 01/29/24 12:07 01/29/24 12:07 01/29/24 12:07
Lab Results
01/29/24 05:45
01/29/24 05:45
Calcium 9.2 mg/dl (8.4-10.2) 01/29/24 05:45
Total Bilirubin 0.9 mg/dl (0.2-1.3) 01/29/24 05:45
AST 26 U/L (14-36) 01/29/24 05:45
ALT 11 U/L (0-35) 01/29/24 05:45
Alkaline Phosphatase 62 U/L (38-126) 01/29/24 05:45
Total Protein 6.3 g/dl (6.3-8.2) 01/29/24 05:45
Albumin 3.7 g/dl (3.5-5.0) 01/29/24 05:45
Physical Exam
-
NAD
ABD soft, mildly distended, very mild tenderness to the mid abdomen to the left of midline
--- NOTE | 2024-01-29 14:32 | W.DCSUMMARY ---
Discharge Summary
Discharge Data
Date of Admission: 01/26/24
Date of Discharge: 01/29/24
-
Pending Results: No
Hospital Course
Principal Diagnosis:
Abdominal pain due to partial small bowel obstruction likely secondary to adhesions
Chronic Diagnoses:�
Hypertension
Asthma-no acute exacerbation
Chronic bronchitis
Gastroesophageal reflux disease
History of irritable bowel syndrome
Anxiety/Depression
Gallbladder polyps
Cataracts
Cyst on right kidney
Consultations:�
General surgery
Procedures:�
None
Clinical course:�
This is a 58-year-old female with past medical history as stated above, who presented with nausea and abdominal pain.
Her CT abdomen pelvis from admission noted partial small bowel obstruction likely secondary to prior adhesions.
Problem 1:
Abdominal pain due to partial small bowel obstruction likely secondary to adhesions.
Her subsequent abdominal x-ray follow-through showed contrast in the colon.
She was initially made n.p.o., and diet was slowly added back.
She tolerated low residue diet prior to discharge.
As for the rest of her medical problems, they were stable during her hospital stay.
Discharge Plan
-
Patient Disposition: Home (Routine Discharge)
Discharge Diagnosis/Procedures: Small bowel obstruction (resolved)
Condition: Good
Diet: As tolerated and Low Residue
Activity: As tolerated
Driving Restrictions: As prior to admission
Referrals:
Eileen Yusuf DO [Family Provider] - in less than 1 week
Prescriptions:
Continued
albuterol sulfate [ProAir HFA] 8.5 GM HFA aerosol inhaler
2 puff IH R Q4HPRN PRN (Reason: shortness of breath )
amlodipine 2.5 MG tablet
2.5 mg PO DAILY
acetaminophen [Tylenol Extra Strength] 500 MG tablet
1,000 mg PO DAILY
fluoxetine [Prozac] 20 mg Capsule
20 mg PO HS
Discharge Orders:
Discharge Patient (As Directed); Ordered 01/29/24
Ordered By: Hallie Spring
Discharge Date and Time
Discharge Date/Time: 01/29/24 14:15
Print Language: BRUNEIAN
--- NOTE | 2024-01-29 16:44 | CM ---
Patient with Dx Abd pain due to partial small bowel obstruction.
Met with patient who was preparing for discharge.
The patient says she feels ready for discharge home today.
Her father will provide a ride home.
No CM d/c needs identified.
Plan home today.
== END 2024-01-29 14:15 | disposition home or self-care (01) | DRG 389 ==
LOC: 4 EAST ACU 18:04
PROVIDERS: Clinical Nurse Specialist Family Health; ADMITTING PHYSICIAN Internal Medicine; CONSULT PHYSICIAN Surgery; EMERGENCY PHYSICIAN Emergency Medicine; FAMILY PHYSICIAN Family Medicine
DX: K56.51 Intestinal adhesions [bands], with partial obstruction (principal); N13.30 Unspecified hydronephrosis; I10 Essential (primary) hypertension; K21.9 Gastro-esophageal reflux disease without esophagitis; J44.89 Other specified chronic obstructive pulmonary disease; D64.9 Anemia, unspecified; F41.9 Anxiety disorder, unspecified; F32.A Depression, unspecified; K82.4 Cholesterolosis of gallbladder; R94.31 Abnormal electrocardiogram [ECG] [EKG]; G43.909 Migraine, unspecified, not intractable, without status migrainosus; K58.8 Other irritable bowel syndrome; N28.1 Cyst of kidney, acquired; Z83.3 Family history of diabetes mellitus; Z82.49 Family history of ischemic heart disease and other diseases of the circulatory system; Z80.3 Family history of malignant neoplasm of breast; Z88.6 Allergy status to analgesic agent; Z87.738 Personal history of other specified (corrected) congenital malformations of digestive system
CPT/HCPCS: 74018; 74022; 74177; 76700; 80053; 81003; 83690; 85025; 86803; 93005; 96361; 96374; 99285; Q9967

== ENCOUNTER → 2024-04-10 11:16 | Outpatient (REF) | payer BC, SELFPAY | LOC: RAD 11:16 | PROVIDERS: ATTENDING PHYSICIAN Family Medicine | DX: K66.0 Peritoneal adhesions (postprocedural) (postinfection) (principal); K56.600 Partial intestinal obstruction, unspecified as to cause; K82.4 Cholesterolosis of gallbladder; K76.89 Other specified diseases of liver; N13.30 Unspecified hydronephrosis | CPT/HCPCS: 76775 ==

== ENCOUNTER → 2024-06-22 08:11 | Outpatient (REF) | payer BC, SELFPAY | LOC: RAD 08:11 | PROVIDERS: ATTENDING PHYSICIAN Physician Assistant; FAMILY PHYSICIAN Family Medicine | DX: K82.4 Cholesterolosis of gallbladder (principal) | CPT/HCPCS: 76700 ==

== ENCOUNTER → 2024-07-09 06:25 | Day surgery (SDC) | payer BC, SELFPAY | LOC: GI 06:25 | PROVIDERS: ATTENDING PHYSICIAN Internal Medicine Gastroenterology | DX: K44.9 Diaphragmatic hernia without obstruction or gangrene (principal); R12 Heartburn | CPT/HCPCS: 43235 ==

== ENCOUNTER → 2025-04-09 10:09 | Outpatient (REF) | payer OTHER, SELFPAY | LOC: RAD 10:09 | PROVIDERS: ATTENDING PHYSICIAN Internal Medicine Gastroenterology; FAMILY PHYSICIAN Family Medicine | DX: K82.4 Cholesterolosis of gallbladder (principal) | CPT/HCPCS: 76700 ==